=== PATIENT | male | born 1980 | race Caucasian/White ===

== ENCOUNTER 2022-07-06 05:50 | Day surgery (SDC) | payer OTHER ==
[2022-07-06] MEDS ORDERED: Lactated Ringers 1,000 ML IV SCH (06:30)
[2022-07-06] MEDS ORDERED: CEFAZOLIN 2 GM-D5W BAG** 2 GM/50 ML ML IV SCH (06:30)
[2022-07-06] MEDS ORDERED: Zofran 4 MG/2 ML VIAL ONE (07:20)
[2022-07-06] MEDS ORDERED: Zemuron 100 MG/10 ML ONE (07:20)
[2022-07-06] MEDS ORDERED: Xylocaine-Mpf 2% 5 Ml Vial ONE (07:20)
[2022-07-06] MEDS ORDERED: DIPRIVAN 200 MG/20 ML IV ONE (07:20)
[2022-07-06] MEDS ORDERED: Decadron 4 MG INJ ONE (07:20)
[2022-07-06] MEDS ORDERED: TORAdol 30 mg Injection ONE (07:20)
[2022-07-06] MEDS ORDERED: BRIDION 200MG/2ML IV ONE (07:20)
[2022-07-06] MEDS ORDERED: Xylocaine 1% Vial 30 ML PF IJ ONE (07:22)
[2022-07-06] MEDS ORDERED: Marcaine Mpf 0.5% Vial 30 Ml ONE (07:22)
[2022-07-06] MEDS ORDERED: Versed 2 MG/2 ML Injection ONE (07:24)
[2022-07-06] MEDS ORDERED: SUBLIMAZE 100 MCG/2 ML ONE (07:25)
[2022-07-06 07:39] LABS: Absolute Neutrophil Ct (ANC) 7.05 x10^3/uL (1.4-6.9); BASOPHIL % 0.6 % (0.0-0.4); Basophil (Absolute #) 0.06 x10^3/uL (0-0.4); Eosinophil % 3.2 % (0.00-5.0); Eosinophil (Absolute #) 0.34 x10^3/uL (0-0.5); Hematocrit 41.5 % (42-50); Hemoglobin 14.1 g/dL (12.5-18.0); IMMATURE GRAN # 0.04 x10^3u/L (0.00-0.03); IMMATURE GRAN % 0.4 % (0.00-0.4); Lymphocyte (Absolute #) 2.67 x10^3/uL (1.0-4.6); Lymphocytes % 24.8 % (24.0-44.0); Mean Cell Volume 86.3 fL (78-100); Mean Corpuscular Hemoglobin 29.3 pg (26-32); Mean Platelet Volume 11.6 fL (7.5-11.0); Monocyte (Absolute #) 0.59 x10^3/uL (0.0-1.3); Monocytes % 5.5 % (0.0-12.0); Neutrophil % 65.5 % (36.0-66.0); Platelet Count 228 x10^3/uL (150-450); Red Blood Count 4.81 x10^6/uL (4.1-5.6); White Blood Count 10.8 x10^3/uL (4.0-10.5)
[2022-07-06 08:55] LABS: ALBUMIN 3.3 g/dL (3.5-5.0); ALKALINE PHOSPHATASE 73 U/L (38-126); ANION GAP 9.9 MEQ/L (5-15); BLOOD UREA NITROGEN 17 mg/dL (9-20); CHLORIDE 107 mmol/L (98-107); Calcium 8.3 mg/dL (8.4-10.2); Carbon Dioxide 27 mmol/L (22-30); Creatinine 1 0.73 mg/dL (0.66-1.25); EST GLOMERULAR FILTRATION RATE > 60.0 ML/MIN; Glucose 109 mg/dL (74-106); Potassium 3.9 mmol/L (3.5-5.1); SGOT/AST 33 U/L (17-59); SGPT/ALT 61 U/L (0-50); SODIUM 140 mmol/L (137-145); Total Protein 5.6 g/dL (6.3-8.2)
--- NOTE | 2022-07-06 09:58 | XRAY ---
Indication: Right great toe arthrodesis. Intraoperative fluoroscopy provided for 1 minute 11 seconds. 12 digital spot images submitted for interpretation demonstrates 1st MTP fusion with intact fixation plate/screws. Correlate with intraoperative findings/report.
[2022-07-06 10:18] VITALS: O2SAT 95
[2022-07-06 10:39] VITALS: BP 122/85; PULSE 85
--- NOTE | 2022-07-06 11:42 | XRAY ---
1 minute and 11 seconds fluoroscopy time in surgery for arthrodesis right 1st toe.
--- NOTE | 2022-07-06 15:02 | OP ---
SURGERY DATE/TIME: 07/06/2022 0740 PREOPERATIVE DIAGNOSES: 1) Osteoarthritis first metatarsophalangeal joint. 2) Sesamoiditis. 3) Turf toe. 4) Chronic pain right foot. POSTOPERATIVE DIAGNOSES: 1) Osteoarthritis first metatarsophalangeal joint. 2) Sesamoiditis. 3) Turf toe. 4) Chronic pain right foot. PROCEDURE: First metatarsophalangeal joint arthrodesis right foot. SURGEON: Nicholas Silverman DPM. FULL TIME BABYSITTER: None. ANESTHESIA: General plus preoperative block consisting of 30 cc of a 1:1 mixture of 1% of lidocaine plain and 0.5% bupivacaine plain injected in a Flores block-type fashion. ESTIMATED BLOOD LOSS: Less than 5 cc. MATERIALS: 3-0 Nylon, 4-0 Monocryl, Sylvia A.L.P.S. first metatarsophalangeal joint 0 degree plate with a 3.4 x 28 mm Max VPC screw. INJECTABLES: 30 cc total of a 1:1 mixture of 1% lidocaine plain and 0.5% bupivacaine plain injected in a Flores block-type fashion. INDICATION FOR SURGERY: Geoff is a very pleasant 42-year-old male who suffered a turf toe injury back in early 2021. He had seen multiple providers for this issue with minimal relief. On him presenting to my clinic, an injection was offered and clinical exam suggested this was more along the lines of first metatarsophalangeal joint arthritis as well as some degree of sesamoiditis. However, the patient had immediate relief with intra-articular injection of the first metatarsophalangeal joint and had significant relief of his symptoms for almost one month. The patient returned sometime earlier this year with consistent concerns indicating that the injection did not last very long and whatever options we decided to proceed with should be definitive. The patient at this time had MRI which demonstrated some osteoarthritis of the first metatarsophalangeal joint. No obvious indications of sesamoiditis or a turf toe or suspensory ligament damage. Options were discussed with the patient in regards to definitive nature of the procedure and the patient would like the idea of proceeding with a fusion of the first metatarsophalangeal joint in order to alleviate the pain permanently. The patient understands all risks, benefits and complications of surgical intervention including but not limited to infection, hematoma, seroma, possibility of delayed wound healing, nonwound healing and possibility of painful retained hardware. The patient understands all of this and wishes to proceed with surgical intervention. Plenty of time was allowed for the patient to ask questions which were answered to the patient's apparent satisfaction. It is with that we decided to proceed. DESCRIPTION OF PROCEDURE AND FINDINGS: The patient was brought into the OR and placed on the OR table in the supine position. At this time general anesthesia was administered until the patient was sedated. A well-padded ankle tourniquet was applied to the patient's right ankle and the tourniquet was set to 250 mm of Mercury. At this time the right foot was prepped and draped in the typical sterile fashion and lowered onto the surgical field. At this time Esmarch was utilized to exsanguinate the foot. The tourniquet was inflated and a linear incision was made in the dorsomedial aspect of the extensor hallucis longus tendon this was deepened along soft tissue plane until the first metatarsophalangeal joint was encountered making sure not to damage any neurovascular structures along the way. The extensor hallucis longus tendon was retracted out of the way and a J Stroke type incision was made over the capsule to open it inspecting the joint. The plantar medial aspect of both the metatarsal head and the proximal phalanx showed some osteochondral defect. However, a majority of the joint did appear to be relatively intact. There was also noted that there is significant thickening of the capsule likely secondary to the chronic inflammation of the joint. At this time cup and cone reamers were utilized to denude the cartilage on both the metatarsal head as well as the base of the proximal phalanx. At this time copious amounts of sterile saline were utilized to flush the surgical site. A 2.0 drill was utilized to fenestrate a surface of the bone and rongeur utilized to break up the subchondral plate. Apposition of the joint was obtained under fluoroscopic guidance and position was maintained utilizing a Sylvia A.L.P.S. first metatarsophalangeal joint 0 degree plate where distal screws were positioned first and then eccentric screw was placed proximal. At this time 3.4 x 28 mm MAX VPC screw was introduced from distal dorsal to proximal lateral orientation gaining good compression through the joint. At this time alternation between the eccentric and interfragmentary screw was completed until the joint felt as tight as it could be. The remaining screw holes were filled with a combination of locking and nonlocking screws making sure not to be bicortical near the sesamoid and gaining good apposition of the joint. Copious amounts of sterile saline were utilized to flush the surgical site. At this time 4-0 Monocryl was utilized to repair the capsule and the subcutaneous tissue in interlocking type fashion for the capsule and a simple interrupted buried-type fashion for the skin. 3-0 Nylon was utilized to coapt the skin in horizontal mattress type fashion. Tourniquet was let down at a total of 48 total tourniquet minutes. Estimated blood loss was less than 5 cc. The patient then had a dressing consisting of Betadine, Adaptic, 4x4, Kerlix and DANI. The patient then was reversed from anesthesia and returned to the postoperative anesthesia unit with vital signs stable and vascular status intact. The patient handled the anesthesia as well as the procedure without significant complication. Postoperative orders as indicated in the patients discharge chart.
== END 2022-07-06 10:40 | disposition home or self-care (01) ==
LOC: SDC 05:50
PROVIDERS: ATTEND Podiatrist Foot & Ankle Surgery
DX: M19.071 Primary osteoarthritis, right ankle and foot (principal); M25.871 Other specified joint disorders, right ankle and foot; S93.511A Sprain of interphalangeal joint of right great toe, initial encounter; M79.671 Pain in right foot
CPT/HCPCS: 36415; 73630; 76000; 80053; 80323; 83036; 85025; C1713; J0690; J1100; J1885; J2001; J2250; J2405; J2704; J3010